=== PATIENT | female | born 1930 | race Two or more races ===

== ENCOUNTER 2016-11-09 18:42 | Emergency (ER) | payer OTHER ==
[~2016-11-09] VITALS: Ht 147.3 cm; Wt 51.3 kg
--- NOTE | 2016-11-09 19:15 | NUR ---
TO BED 1 BIB FAMILY MEMBERS C/O WEAK AND DIZZY AFTER TAKING METROPOLOL 5 DAYS AGO. PT AAOX4 NO ACUTE DISTRESS NOTED, RESP EVEN AND UNLABORED. PLACE PT ON CARDIAC MONITORING, CONTINUOUS POX. ER MD AT BEDSIDE TO EVAL PT WITH ORDERS RECEIVED.
--- NOTE | 2016-11-09 19:20 | NUR ---
STARTED SL 18G TO R AC, BLOOD DRAWN AND SENT TO LAB.
[2016-11-09 19:28] LABS: BASOPHILS % (AUTO) 0.3 % (0.0-2.0); EOSINOPHILS # (AUTO) 0.2 /CMM (0.0-0.7); EOSINOPHILS % (AUTO) 4.1 % (0.0-6.0); HEMATOCRIT 40 % (33-45); HEMOGLOBIN 13.7 g/dL (11.5-14.8); LYMPHOCYTES # (AUTO) 1.5 /CMM (0.8-4.8); LYMPHOCYTES % (AUTO) 26.9 % (20.0-44.0); MEAN CORPUSCULAR HEMOGLOBIN 30 PG (26.0-33.0); MEAN CORPUSCULAR HGB CONC 34 g/dl (31.0-36.0); MEAN CORPUSCULAR VOLUME 87 fL (82-100); MONOCYTES # (AUTO) 0.4 /CMM (0.1-1.30); MONOCYTES % (AUTO) 8.1 % (2.0-12.0); NEUTROPHILS # (AUTO) 3.5 /CMM (1.8-8.9); NEUTROPHILS % (AUTO) 60.6 % (43.0-81.0); PLATELET COUNT (AUTO) 236 /CMM (150-450); RED BLOOD CELL COUNT(AUTO) 4.63 MIL/uL (4.0-5.2); WHITE BLOOD COUNT (AUTO) 5.6 K/uL (4.3-11.0)
[2016-11-09] MEDS ORDERED: ONDANSETRON HCL/PF 4 MG/2 ML VIAL ONE (19:38)
[2016-11-09 19:39] LABS: CALCIUM, SERUM 9.4 mg/dL (8.5-10.1); CARBON DIOXIDE 29 mmol/L (21-32); CHLORIDE 103 mmol/L (98-107); CREATININE 0.8 mg/dL (0.6-1.3); GLUCOSE 110 mg/dL (74-106); POTASSIUM 3.6 mmol/L (3.5-5.1); SODIUM SERUM 139 mmol/L (136-145); UREA NITROGEN, BLOOD 12 mg/dL (7-18)
[2016-11-09] MEDS ORDERED: ACETAMINOPHEN ES 500 MG TABLET ONE (19:39)
[2016-11-09 19:42] LABS: INR 0.99 (0.87-1.13); PROTHROMBIN TIME 10.3 SECS (9.5-12.7)
[2016-11-09 19:45] LABS: ALANINE AMINOTRANSFERASE 22 U/L (12-78); ALBUMIN 3.9 g/dL (3.4-5.0); ALKALINE PHOSPHATASE 51 U/L (46-116); ASPARTATE AMINOTRANSFERASE 20 U/L (15-37); BILIRUBIN,DIRECT 0.1 mg/dL (0.0-0.2); BILIRUBIN,TOTAL 0.4 mg/dL (0.2-1.0); TOTAL PROTEIN, SERUM 6.9 g/dL (6.4-8.2)
[2016-11-09] MEDS ORDERED: ONDANSETRON HCL/PF - ER 4 MG/2 ML VIAL IV ONE (20:00)
[2016-11-09] MEDS ORDERED: ACETAMINOPHEN ES 500 MG TABLET PO ONE (20:00)
--- NOTE | 2016-11-09 20:11 | NUR ---
pt transported to radiology for ct head.
--- NOTE | 2016-11-09 20:19 | NUR ---
pt back from radiology. pending ct head result.
--- NOTE | 2016-11-09 20:35 | NUR ---
pt ambulatory to the bathroom with steady gait noted.
--- NOTE | 2016-11-09 20:44 | NUR ---
urine sample collected and sent to lab
--- NOTE | 2016-11-09 20:58 | NUR ---
thiago md at bedside to re-eval pt. pt denies pain or discomfort at this time. pt family members remains at bedside.
--- NOTE | 2016-11-09 21:34 | NUR ---
IV removed. Catheter intact and site benign. Pressure and 4x4 applied to site. No bleeding noted. Patient discharged to home in stable condition. Written and verbal after care instructions given. Patient verbalizes understanding of instruction. ambulatory with a steady gait noted. pt family members at bedside to take pt home.
[2016-11-09 21:36] VITALS: BP 162/77
== END 2016-11-09 21:37 | disposition home or self-care (01) ==
LOC: ER 18:47
DX: I10 Essential (primary) hypertension (principal); R51 Headache; I73.9 Peripheral vascular disease, unspecified; Z88.8 Allergy status to other drugs, medicaments and biological substances; F17.200 Nicotine dependence, unspecified, uncomplicated
CPT/HCPCS: 36415; 70450-TC; 80048-TC; 80076-TC; 84484-TC; 85025-TC; 85730-TC; A4606; J2405; Z7610

== ENCOUNTER 2017-01-04 12:31 | Emergency (ER) | payer OTHER ==
[~2017-01-04] VITALS: Ht 144.8 cm; Wt 53.5 kg
--- NOTE | 2017-01-04 12:50 | NUR ---
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 RESP EVEN AND UNLABORED, SKIN WARM AND DRY, NAD NOTED, VSS, PT WAS PUT ON EKG, SEEN BY .
[2017-01-04 13:13] LABS: BASOPHILS % (AUTO) 0.5 % (0.0-2.0); EOSINOPHILS # (AUTO) 0.2 /CMM (0.0-0.7); EOSINOPHILS % (AUTO) 4.1 % (0.0-6.0); HEMATOCRIT 41 % (33-45); HEMOGLOBIN 13.8 g/dL (11.5-14.8); LYMPHOCYTES # (AUTO) 1.2 /CMM (0.8-4.8); LYMPHOCYTES % (AUTO) 23.5 % (20.0-44.0); MEAN CORPUSCULAR HEMOGLOBIN 29 PG (26.0-33.0); MEAN CORPUSCULAR HGB CONC 34 g/dl (31.0-36.0); MEAN CORPUSCULAR VOLUME 86 fL (82-100); MONOCYTES # (AUTO) 0.4 /CMM (0.1-1.30); MONOCYTES % (AUTO) 7.6 % (2.0-12.0); NEUTROPHILS # (AUTO) 3.3 /CMM (1.8-8.9); NEUTROPHILS % (AUTO) 64.3 % (43.0-81.0); PLATELET COUNT (AUTO) 230 /CMM (150-450); RDW COEFFICIENT OF VARIATION 11.9 (11.5-15.0); RED BLOOD CELL COUNT(AUTO) 4.76 MIL/uL (4.0-5.2); WHITE BLOOD COUNT (AUTO) 5.1 K/uL (4.3-11.0)
[2017-01-04 13:25] LABS: CALCIUM, SERUM 9.2 mg/dL (8.5-10.1); CARBON DIOXIDE 30 mmol/L (21-32); CHLORIDE 102 mmol/L (98-107); CREATININE 0.7 mg/dL (0.6-1.3); GLUCOSE 96 mg/dL (74-106); POTASSIUM 4.2 mmol/L (3.5-5.1); SODIUM SERUM 137 mmol/L (136-145); UREA NITROGEN, BLOOD 10 mg/dL (7-18)
[2017-01-04] MEDS ORDERED: hydrALAZINE HCL IV 20 MG VIAL IV ONE (13:30)
[2017-01-04] MEDS ORDERED: hydrALAZINE HCL IV 20 MG VIAL ONE (13:31)
[2017-01-04] MEDS ORDERED: ONDANSETRON HCL/PF 4 MG/2 ML VIAL ONE (13:32)
[2017-01-04 13:33] LABS: TROPONIN I 0.018 ng/mL (0.00-0.056)
[2017-01-04 13:39] LABS: INR 0.96 (0.87-1.13)
--- NOTE | 2017-01-04 13:43 | NUR ---
PT FELT BETTER AND NO LONGER NAUSEATED. ZOFRAN WASTED, NOT GIVEN.
[2017-01-04 14:00] VITALS: BP 162/80
[2017-01-04] MEDS ORDERED: ONDANSETRON HCL/PF 4 MG/2 ML VIAL IV ONE (14:00)
--- NOTE | 2017-01-04 14:02 | NUR ---
Patient discharged to home in stable condition. Written and verbal after care instructions given. Patient verbalizes understanding of instruction.IV removed. Catheter intact and site benign. Pressure and 4x4 applied to site. No bleeding noted.
== END 2017-01-04 14:02 | disposition home or self-care (01) ==
LOC: ER 12:33
DX: I10 Essential (primary) hypertension (principal); F17.200 Nicotine dependence, unspecified, uncomplicated
CPT/HCPCS: 36415; 71010; 80048; 84484; 85025; 85730; 93005; 96374; 99285; A4606; J0360; J2405; Z7610

== ENCOUNTER 2018-11-12 00:47 | Emergency (ER) | payer OTHER ==
[~2018-11-12] VITALS: Ht 144.8 cm; Wt 49.9 kg
--- NOTE | 2018-11-12 01:03 | NUR ---
PER FAMILY MEMBER, PT NORMALLY TAKES CHLOROTHIAZIDE AND LISINOPRIL. PER FAMILY, PT HAD LOW BP READING LAST WEEK AND WAS INSTRUCTED BY PMD TO DISCONTINUE CHLOROTHIZIDE X1 WEEK. PT HAD HIGH BP READING AT HOME (184/102) AND ADMINISTERED CARVIDOLOL 6.25MG AT 2015 TODAY. FAMILY RECHECKED BP AND ADMINISTERED LISINPORIL 20MG AT 2240 AND ANOTHER DOSE OF LISINIOPRIL 20MG AT 2315.
--- NOTE | 2018-11-12 01:18 | NUR ---
BIB FAMILY FOR C/O HIGH BP. CURRENTLY 159/86. PT WAS MEDICATED W/ MULTIPLE DIFFERENT TYPES OF BP MEDS PRIOR TO ARRIVAL. PT ALSO W/ C/O NAUSDEA AND "HEAVINESS" ON EPIGASTRIC AREA. PLACED ON A MOITOR , VSS . WILL CONT TO MONITOR ,
[2018-11-12] MEDS ORDERED: CLONIDINE HCL 0.1 MG TABLET ONE (02:11)
[2018-11-12] MEDS ORDERED: ONDANSETRON 4 MG TAB.RAPDIS ONE (02:11)
--- NOTE | 2018-11-12 02:23 | NUR ---
BP:155/84, HR:86 PER MD TO HOLD THE CLONIDINE.
[2018-11-12 02:25] LABS: BASOPHILS % (AUTO) 0.8 % (0.0-2.0); EOSINOPHILS % (AUTO) 4.7 % (0.0-6.0); HEMATOCRIT 37 % (33-45); HEMOGLOBIN 13.1 g/dL (11.5-14.8); LYMPHOCYTES # (AUTO) 1.2 /CMM (0.8-4.8); LYMPHOCYTES % (AUTO) 23.7 % (20.0-44.0); MEAN CORPUSCULAR HGB CONC 35 g/dl (31.0-36.0); MEAN CORPUSCULAR VOLUME 86 fL (82-100); MONOCYTES # (AUTO) 0.4 /CMM (0.1-1.30); MONOCYTES % (AUTO) 7.8 % (2.0-12.0); NEUTROPHILS # (AUTO) 3.1 /CMM (1.8-8.9); PLATELET COUNT (AUTO) 180 /CMM (150-450); RED BLOOD CELL COUNT(AUTO) 4.31 MIL/uL (4.0-5.2)
[2018-11-12] MEDS ORDERED: CLONIDINE HCL 0.1 MG TABLET PO ONE (02:30)
[2018-11-12] MEDS ORDERED: ONDANSETRON 4 MG TAB.RAPDIS SL ONE (02:30)
[2018-11-12 02:33] LABS: CALCIUM, SERUM 9.1 mg/dL (8.5-10.1); CARBON DIOXIDE 28 mmol/L (21-32); CHLORIDE 98 mmol/L (98-107); CREATININE 0.7 mg/dL (0.6-1.3); GLUCOSE 111 mg/dL (74-106); POTASSIUM 3.8 mmol/L (3.5-5.1); SODIUM SERUM 135 mmol/L (136-145); UREA NITROGEN, BLOOD 10 mg/dL (7-18)
--- NOTE | 2018-11-12 03:04 | NUR ---
BP:161/81, HR:65 MD AWARE. TO HOLD THE CLONIDINE PT LAYING DOWN IN BED AWAKE AND ALERT. FAMILLY AT THE BED SIDE. NO C/O DISCOMFORT. ON CLOSE MONITRING.
--- NOTE | 2018-11-12 03:21 | NUR ---
Patient discharged to home in stable condition. Rx and Written and verbal after care instructions given. Patient and family verbalized understanding of instruction.
[2018-11-12 03:22] VITALS: BP 161/81
== END 2018-11-12 03:25 | disposition home or self-care (01) ==
LOC: ER 00:51
DX: I10 Essential (primary) hypertension (principal); E78.5 Hyperlipidemia, unspecified; F17.210 Nicotine dependence, cigarettes, uncomplicated; Z88.8 Allergy status to other drugs, medicaments and biological substances
CPT/HCPCS: 36415; 71045; 80048; 84484; 85025; 93005; 99284; Q0162

== ENCOUNTER 2019-03-11 14:28 | Emergency (ER) | payer OTHER ==
[~2019-03-11] VITALS: Ht 127 cm; Wt 53.5 kg
--- NOTE | 2019-03-11 14:59 | NUR ---
DR SILVEIRA AT BEDSIDE
[2019-03-11] MEDS ORDERED: HYDROCODONE/APAP 5/325MG 1 EACH TABLET ONE (15:08)
--- NOTE | 2019-03-11 15:15 | NUR ---
US TECH AT BEDSIDE
[2019-03-11] MEDS ORDERED: HYDROCODONE/APAP 5/325MG 1 EACH TABLET PO ONE (15:30)
--- NOTE | 2019-03-11 15:34 | NUR ---
WHEELED OUT VIA RNEY FOR CT SCAN
--- NOTE | 2019-03-11 16:39 | NUR ---
Patient discharged with daughter in stable condition. Written and verbal after care instructions given. Patient and daughter verbalizes understanding of instruction. Assisted to waiting room while waiting for cd copy of images.
[2019-03-11 16:50] VITALS: BP 158/84
== END 2019-03-11 16:50 | disposition home or self-care (01) ==
LOC: ER 14:28
DX: M71.21 Synovial cyst of popliteal space [Baker], right knee (principal); M54.41 Lumbago with sciatica, right side; I10 Essential (primary) hypertension; E78.5 Hyperlipidemia, unspecified; F17.210 Nicotine dependence, cigarettes, uncomplicated; Z88.5 Allergy status to narcotic agent; Z88.6 Allergy status to analgesic agent
CPT/HCPCS: 72131-TC; 93971-TC